=== PATIENT | female | born 2000 | race Caucasian/White ===

== ENCOUNTER 2023-05-23 23:09 | Emergency (ER) | payer BC, SELFPAY ==
[2023-05-23 23:11] VITALS: BP 118/79; PULSE 82; RESP 16; TEMP 36.6; BMI 24.8
[2023-05-23 23:14] VITALS: BP 118/79; PULSE 82; RESP 16; TEMP 36.6
--- NOTE | 2023-05-23 23:37 | ED.VIS.GI ---
HPI HPI - GI History of Present Illness Chief Complaint: Abd Pain Informant: patient and spouse/S.O. Narrative Narrative: Patient presents with abdominal pain. Patient states that for about 5 days her stomach has been making more gurgling noises than normal. These especially increased after eating. But her diet really has not changed. She has not been getting pain with this though. She has also been moving her bowels usually after each meal. The stools are softer but not bloody or black. They are not diarrhea. But that is still not her normal. About an hour and a half ago or so she got some epigastric area pain. She got nauseated. She vomited and either vomited a little bit of blood or vomited and had a bloody nose at the same time. She is not 100% sure which it is. But the blood was red. It has now stopped. It has not recurred. Her abdomen really is not hurting as much now as it did before. No fevers or chills at any time. No personal or family history of Crohn's or ulcerative colitis. No history of irritable bowel. No history of GERD. No prior abdominal surgeries. Only medication is control. [facility] Home Medications esomeprazole magnesium 20 mg capsule,delayed release (Nexium) 20 mg PO DAILY #30 caps 05/24/23 [Rx Last Taken Unknown] Allergy/AdvReac Type Severity Reaction Status Date / Time No Known Allergies Allergy Verified 05/23/23 23:15 Social History Smoking Status: Never smoker ROS ROS ED ROS Narrative A complete review of systems was performed and is negative except as documented in the history of present illness. Some specific details below. Constitutional: No recent fevers or chills. No malaise. No weight loss. EYE: No visual complaints or pain. ENT: No difficulty swallowing. No swelling. No pain. She had some GERD acid taste type symptoms this evening with the nausea and vomiting but not at other times. CV: No chest pain or palpitations. Respiratory: No dyspnea. No hemoptysis. No difficulty taking breaths. GI: Please see history of present illness. : No frequency dysuria or hematuria. Musculoskeletal: No recent trauma. No pains. Skin: No rash. Nondiaphoretic. Neuro: No weakness or numbness. Endocrine: No polyuria or polydipsia. EXAM Physical Exam Narrative Exam Narrative: CONSTITUTIONAL: Patient is nontoxic in appearance. The patient looks comfortable. HEENT: No notable trauma. Mucous membranes moist. No sinus tenderness. No indication of pain with swallowing. EYES: No conjunctival injection. No proptosis. Not icteric CARDIOVASCULAR: Regular rate. Regular rhythm. No notable murmur. No JVD. RESPIRATORY: No respiratory distress. Breathing is unlabored. No wheezes. No rhonchi. No rales. No pain with a deep breath. GASTROINTESTINAL: Not distended. Bowel sounds are normal. No tenderness. No guarding. No rebound. No palpable mass. No bruit. Overall, her abdomen is actually quite benign now. GENITOURINARY: No tenderness over the bladder. No CVA tenderness. MUSCULOSKELETAL: Atraumatic. No peripheral edema. NEUROLOGICAL: Patient is alert and appropriate. No focal deficit noted. SKIN: No pallor. No noted rashes. No diaphoresis. PSYCHIATRIC: Patient is calm. Mood is appropriate. Const Vital Signs: 05/23/23 23:11 05/23/23 23:14 Temperature 97.9 F 97.9 F Temperature Source Temporal Temporal Pulse Rate 82 82 Respiratory Rate 16 16 Blood Pressure 118/79 118/79 Blood Pressure Mean 92 92 MDM MDM MDM Narrative Medical decision making narrative: Patient CBC shows minimal nonspecific elevation of her white count but normal hemoglobin and platelets. Patient's electrolytes are normal other than minimal elevation in BUN and creatinine. This shows just very mild dehydration but can correct with slight increase of fluids in the diet. Liver function test are overall normal. Lipase is normal at 36. I rechecked the patient. She is asymptomatic. Her abdomen is benign. With her increased borborygmi, intermittent epigastric discomfort, and possible episode of hematemesis we will treat her as peptic ulcer type disease. I will get her on a PPI. We discussed follow-up and reasons to return. She has no fever, no marked abnormality of her labs, symptoms are resolved and her exam is benign and I do not think imaging/CT scan of abdomen and pelvis is needed. Lab Data Labs: Laboratory Results - last 24 hr 05/23/23 23:40 WBC 11.3 H RBC 4.16 L Hgb 12.4 Hct 36.4 L MCV 87.5 MCH 29.8 MCHC 34.1 RDW Std Deviation 40.1 RDW Coeff of Ramon 12.6 Plt Count 254 MPV 9.1 Immature Gran % (Auto) 1.200 H Neut % (Auto) 69.9 Lymph % (Auto) 22.8 [place] % (Auto) 5.2 Eos % (Auto) 0.5 Baso % (Auto) 0.4 Absolute Neuts (auto) 7.9 H Absolute Lymphs (auto) 2.57 Nucleated RBC % 0 Sodium 140 Potassium 3.5 Chloride 107 Carbon Dioxide 27.0 Anion Gap 6 BUN 19 H Creatinine 1.09 H Estim Creat Clear Calc 78.06 Est GFR (MDRD) Af Amer 80 Est GFR (MDRD) Non-Af 66 BUN/Creatinine Ratio 17.4 Glucose 92 Calcium 8.7 Total Bilirubin 0.30 AST 8 L ALT 13 Alkaline Phosphatase 41 L Total Protein 7.0 Albumin 3.3 Globulin 3.7 Albumin/Globulin Ratio 0.9 Lipase 36 Serum , Qual NEGATIVE Discharge Plan Triage Chief Complaint: Abd Pain ED Provider: Kendall Cavanaugh Dx/Rx/DC Orders Clinical Impression: History of hematemesis, Abdominal pain, Peptic ulcer disease Instructions: ED Abdominal Pain Unkn Cause Fem, ED Gastritis Ulcer No Abx Prescriptions: New esomeprazole magnesium [Nexium] 20 mg capsule,delayed release(DR/EC) 20 mg PO DAILY Qty: 30 0RF Primary Care Provider: Nayla Pineda Referrals: Nayla Pineda, [Primary Care Provider] - 1-2 Weeks Care Physician,No Primary [Non-Staff] - Disposition Disposition: Home, Self Care
[2023-05-23] MEDS: Ondansetron 4 MG/2 ML Vial IV (23:46)
[2023-05-23 23:57] LABS: Absolute Lymphocyte Count 2.57 X10^3/uL (0.83-4.51); Absolute Neutrophil Count 7.9 X10^3/uL (2.0-7.7); Basophil# 0.04 X10^3/uL; Basophil% 0.4 % (0-1); Eosinophil# 0.06 X10^3/uL; Eosinophils% 0.5 % (0-5); Hematocrit 36.4 % (37-47); Hemoglobin 12.4 g/dL (12.0-15.0); Lymphocyte # 2.57 X10^3/ul (0.83-4.51); Lymphocyte % 22.8 % (19-41); Mean Corp Hgb Conc 34.1 g/dL (32-36); Mean Corpuscular Hgb 29.8 pg (27.0-32.0); Mean Corpuscular Volume 87.5 fL (81-99); Mean Platelet Vol. 9.1 fl (6.2-12.0); Monocyte# 0.59 X10^3/uL; Monocyte% 5.2 % (0-10); NRBC Flagged by Analyzer 0 % (0-5); Neutrophil # 7.89 X10^3/uL (2.7-7.7); Neutrophil % 69.9 % (47-70); Platelet Count 254 K/mm3 (150-450); RBC Distribution Width CV 12.6 % (11.6-14.6); RBC Distribution Width SD 40.1 fl (35.1-43.9); Red Blood Count 4.16 M/mm3 (4.2-5.4); White Blood Count 11.3 K/mm3 (4.4-11.0)
[2023-05-24 00:02] LABS: Internal QC Validated? YES +Cl - CLEAR BKGD; Pregnancy, Serum, hCG Quali. NEGATIVE Negative
[2023-05-24 00:04] LABS: ALB/GLOB Ratio 0.9 RATIO (0.9-2.4); AST(SGOT) 8 U/L (15-37); Alanine Aminotransfer ALT/SGPT 13 U/L (13-56); Albumin, Serum 3.3 g/dL (3.2-5.0); Alkaline Phosphatase 41 U/L (45-117); Anion Gap 6 (5-15); BUN 19 mg/dL (7-18); BUN/Creat Ratio 17.4 RATIO (10-20); Calcium,Total 8.7 mg/dL (8.5-10.1); Chloride 107 mmol/L (98-107); Creatinine, Serum 1.09 mg/dL (0.55-1.02); EST Glomerular Filtration Rate 66 mL/min (>60); Est Glom Filt Rate - Afr Amer 80 mL/min (>60); Estimated Creatinine Clearance 78.06 ml/min; Globulin 3.7 g/dL (2.2-4.2); Glucose 92 mg/dL (74-106); Lipase 36 U/L (13-75); Potassium 3.5 mmol/L (3.5-5.1); Sodium Level 140 mmol/L (136-145)
== END 2023-05-24 01:49 | disposition home or self-care (01) ==
PROVIDERS: Emergency Provider Emergency Medicine; PCP Family Medicine; Visit Provider Emergency Medicine
DX: K27.9 Peptic ulcer, site unspecified, unspecified as acute or chronic, without hemorrhage or perforation (principal); E86.0 Dehydration; R10.13 Epigastric pain; R11.2 Nausea with vomiting, unspecified
CPT/HCPCS: 80053; 83690; 84703; 85025; 96365; 96375; 99283; A4216; J2405; J3490